=== PATIENT | male | born 1980 | race Caucasian/White ===

== ENCOUNTER 2021-06-06 16:46 | Emergency (ER) | payer BC ==
[~2021-06-06] VITALS: Ht 188 cm; Wt 115.9 kg
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
[2021-06-06] MEDS ORDERED: DIPH,PERTUSS(ACELL),TET VAC/PF 0.5 ML SYRINGE. VAX IM ONE (17:30)
[2021-06-06] MEDS ORDERED: MUPIROCIN 2% TOPICAL OINTMENT 22GM TUBE. TP ONE (17:30)
[2021-06-06] MEDS ORDERED: HYDROmorphone PF 1 MG/ML DISP.SYRIN ONE (17:45)
[2021-06-06] MEDS ORDERED: HYDROmorphone PF 1 MG/ML DISP.SYRIN IVP ONE (17:45)
[2021-06-06] MEDS ORDERED: MUPI22OI2 TP (17:47)
[2021-06-06] MEDS ORDERED: OXYC1TAB19 PO (17:47)
[2021-06-06 18:00] VITALS: BP 164/91
== END 2021-06-06 18:05 | disposition home or self-care (01) ==
LOC: ER 16:46
DX: T22.20XA Burn of second degree of shoulder and upper limb, except wrist and hand, unspecified site, initial encounter (principal); T20.20XA Burn of second degree of head, face, and neck, unspecified site, initial encounter; X08.8XXA Exposure to other specified smoke, fire and flames, initial encounter; Y93.89 Activity, other specified; Y92.89 Other specified places as the place of occurrence of the external cause; Y99.8 Other external cause status
CPT/HCPCS: 16020; 90471; 90715; 96372; 96374; 99284; J1170; J3010